=== PATIENT | female | born 1950 | race Asian ===

== ENCOUNTER 2017-09-26 06:29 | Day surgery (SDC) | payer MEDICARE, OTHER ==
[~2017-09-26] VITALS: Ht 157.5 cm; Wt 49.5 kg
[~2017-09-26 06:29] MED LIST: SODIUM CHLORIDE 0.9% 1,000 ML IV ONE
[2017-09-26] MEDS ORDERED: BENZOCAINE 20% 50 MCG/SPRAY 57 GM TP ONE (06:30)
[2017-09-26] MEDS ORDERED: SODIUM CHLORIDE 0.9% 1,000 ML IV ONE ×2 (06:30→06:42)
[2017-09-26] MEDS ORDERED: LIDOCAINE HCL 2% 30 ML JELLY TP ONE (06:30)
[2017-09-26] MEDS ORDERED: ALBUTEROL SULFATE 2.5 MG/0.5 ML NEB SOLUTION NEB ONE (06:30)
[2017-09-26] MEDS ORDERED: LIDOCAINE HCL 4% 50 ML SOLUTION TP ONE (06:30)
[2017-09-26] MEDS ORDERED: FentaNYL CITRATE-PF 100 MCG/2 ML VIAL ONE (07:53)
[2017-09-26] MEDS ORDERED: MIDAZOLAM HCL 2 MG/2 ML VIAL ONE (07:53)
[2017-09-26] MEDS ORDERED: MethylPREDNISolone SOD SUCC 125 MG/2 ML VIAL IVP ONE (09:15)
[2017-09-26] MEDS ORDERED: MethylPREDNISolone SOD SUCC 125 MG/2 ML VIAL ONE (09:42)
[2017-09-26] MEDS ORDERED: ASPI81TA33 PO (10:10)
[2017-09-26] MEDS ORDERED: SIMV-259 PO (10:10)
[2017-09-26] MEDS ORDERED: AMLO-511 PO (10:10)
[2017-09-26] MEDS ORDERED: ALBU90AE IH (10:10)
[2017-09-26] MEDS ORDERED: OXYGEN THERAPY IH SCH (20:00)
== END 2017-09-26 09:58 | disposition other institution (70) ==
LOC: SURGERY 06:29
PROVIDERS: ATTEND Internal Medicine Critical Care Medicine
DX: J38.4 Edema of larynx (principal); B37.0 Candidal stomatitis; J18.9 Pneumonia, unspecified organism
CPT/HCPCS: 31623; 31624; 71010; 87015 ×2; 87070; 87101; 87205; 87220; 88108; 88312; J2250; J2930; J3010; J7030

== ENCOUNTER 2017-09-26 10:08 | Inpatient (IN) | payer MEDICARE, OTHER ==
[~2017-09-26] VITALS: Ht 152.4 cm; Wt 50.0 kg
[2017-09-26] MEDS ORDERED: ALBU90AE IH (10:10)
[2017-09-26] MEDS ORDERED: ASPI81TA33 PO (10:10)
[2017-09-26] MEDS ORDERED: AMLO-511 PO (10:10)
[2017-09-26] MEDS ORDERED: SIMV-259 PO (10:10)
[2017-09-26] MEDS ORDERED: PROPOFOL 1000 MG/ISO-OSM 100 ML IV PRN (10:19)
[2017-09-26] MEDS ORDERED: MIDAZOLAM HCL 5 MG/ML VIAL ONE (10:41)
[2017-09-26 10:59] LABS: BASOPHILS % (AUTO) 0.3 % (0.0-2.0); EOSINOPHILS % (AUTO) 14.8 % (1.0-6.0); HEMATOCRIT 41.2 % (36-46); HEMOGLOBIN 13.7 g/dL (12.0-16.0); LYMPHOCYTES # (AUTO) 3.2 K/uL (1.0-4.8); LYMPHOCYTES % (AUTO) 28.6 % (22.0-44.0); MEAN CORPUSCULAR HEMOGLOBIN 30.9 pg (26.0-34.0); MEAN CORPUSCULAR HGB CONC 33.1 G/dL (31.0-37.0); MEAN CORPUSCULAR VOLUME 93 fL (80-100); MONOCYTES # (AUTO) 0.4 K/uL (0.1-1.0); MONOCYTES % (AUTO) 3.4 % (2.0-9.0); NEUTROPHILS # (AUTO) 5.9 K/uL (1.8-7.7); NEUTROPHILS % (AUTO) 52.9 % (40.0-70.0); PLATELET COUNT (AUTO) 318 K/uL (150-450); RED BLOOD CELL COUNT(AUTO) 4.42 MIL/uL (4.00-5.20); WHITE BLOOD COUNT (AUTO) 11.2 K/uL (4.5-11.0)
[2017-09-26] MEDS ORDERED: SODIUM CHLORIDE 0.9% 1,000 ML IV ONE ×2 (11:08→12:30)
[2017-09-26 11:09] LABS: ANION GAP 10 mmol/L (8-16); CALCIUM, TOTAL 8.4 mg/dL (8.8-10.5); CARBON DIOXIDE 28 mmol/L (22-29); CHLORIDE 105 mmol/L (98-107); CREATININE 0.82 mg/dL (0.60-1.30); GLOMERULAR FILTR. RATE CALC > 60 mL/min (>60); POTASSIUM 3.6 mmol/L (3.5-5.1); SODIUM SERUM 143 mmol/L (136-145); UREA NITROGEN, BLOOD 10 mg/dL (7-18)
[2017-09-26] MEDS ORDERED: NOREPINEPHRINE 4 MG/D5%-WATER 0 ML IV ONE (11:13)
[2017-09-26 11:14] LABS: ALANINE AMINOTRANSFERASE 16 U/L (12-78); ALBUMIN 3.7 g/dL (3.4-5.0); ASPARTATE AMINOTRANSFERASE 17 U/L (15-37); BILIRUBIN,TOTAL 0.4 mg/dL (0.1-1.0); TOTAL PROTEIN, SERUM 7.7 g/dL (6.4-8.2)
[2017-09-26] MEDS ORDERED: PHENYLEPHRINE 200 MG/D5%-WATER 250 ML IV ONE (11:15)
[2017-09-26 11:17] LABS: LACTIC ACID 1.5 mmol/L (0.4-2.0)
[2017-09-26 11:21] LABS: ABG A-A DIFF O2 219.5 mmHg (10-20.0); ABG BASE EXCESS -1.2 mmol/L (-2.0-3.0); ABG HCO3 22.8 mmol/L (22.0-26.0); ABG OXYHEMOGLOBIN 91.4 % (94.0-100.0); ABG PCO2 55 mmHg (35-45); ABG PH 7.281 (7.35-7.450); TEMPERATURE, FAHRENHEIT, BG 98.6 FAHREN (96.0-98.6)
[2017-09-26 11:22] LABS: ALLEN TEST, BLOOD GAS Positive
[2017-09-26] MEDS ORDERED: 0.9% SODIUM CHLORIDE 5 ML NEB SOLUTION NEB ONE (11:28)
[2017-09-26] MEDS ORDERED: ALBUTEROL SULFATE 5 MG/ML 20 ML NEB SOLN [BULK] NEB ONE (11:30)
[2017-09-26] MEDS ORDERED: PredniSONE 20 MG TABLET PO ONE (11:30)
[2017-09-26] MEDS ORDERED: MethylPREDNISolone SOD SUCC 125 MG/2 ML VIAL IVP ONE (11:30)
[2017-09-26] MEDS ORDERED: IPRATROPIUM BROMIDE 0.5 MG/2.5 ML NEB SOLUTION NEB ONE (11:30)
[2017-09-26] MEDS ORDERED: PHENYLEPHRINE 200 MG/D5%-WATER 250 ML IV PRN (11:30)
[2017-09-26] MEDS ORDERED: SUCCINYLCHOLINE CHLORIDE 20 MG/ML 10 ML VIAL IVP ONE (12:30)
[2017-09-26] MEDS ORDERED: ETOMIDATE 2 MG/ML 10 ML VIAL IVP ONE (12:30)
[2017-09-26] MEDS ORDERED: MIDAZOLAM HCL 5 MG/ML VIAL IVP ONE (13:00)
[2017-09-26] MEDS ORDERED: MAGNESIUM HYDROXIDE SUSPENSION 30 ML UDCUP PO PRN (14:30)
[2017-09-26] MEDS ORDERED: ACETAMINOPHEN 325 MG TABLET PO PRN (14:30)
[2017-09-26] MEDS: PANTOPRAZOLE SODIUM 40 MG DR TABLET PO SCH (14:30)
[2017-09-26 15:07] VITALS: BP 130/70
[2017-09-26 15:12] VITALS: BP 130/70
[2017-09-26 16:00] VITALS: BP 111/60
[2017-09-26] MEDS: IPRATROPIUM BROMIDE 0.5 MG/2.5 ML NEB SOLUTION NEB SCH ×2 (16:23→22:01)
[2017-09-26] MEDS: ALBUTEROL SULFATE 2.5 MG/0.5 ML NEB SOLUTION NEB SCH ×2 (16:23→22:01)
[2017-09-26 18:00] VITALS: BP 134/70
[2017-09-26] MEDS: MethylPREDNISolone SOD SUCC 125 MG/2 ML VIAL IVP SCH ×2 (18:45→23:19)
[2017-09-26] MEDS: HEPARIN SODIUM,PORCINE 5,000 UNITS/ML VIAL SQ SCH ×2 (18:46→23:19)
[2017-09-26] MEDS: PROPOFOL 1000 MG/ISO-OSM 100 ML IV PRN ×2 (19:44→23:21)
[2017-09-26 20:00] VITALS: BP 115/61
[2017-09-26] MEDS: DOCUSATE SODIUM 100 MG CAPSULE PO SCH (20:40)
[2017-09-26 22:00] VITALS: BP 126/66
[2017-09-27] VITALS (7 sets, daily range): BP systolic 103–172; BP diastolic 56–95
[2017-09-27] MEDS: ALBUTEROL SULFATE 2.5 MG/0.5 ML NEB SOLUTION NEB SCH ×7 (00:01→23:19)
[2017-09-27] MEDS: IPRATROPIUM BROMIDE 0.5 MG/2.5 ML NEB SOLUTION NEB SCH ×7 (02:48→23:19)
[2017-09-27] MEDS: MethylPREDNISolone SOD SUCC 125 MG/2 ML VIAL IVP SCH ×4 (05:48→23:27)
[2017-09-27] MEDS: PROPOFOL 1000 MG/ISO-OSM 100 ML IV PRN ×4 (05:49→18:55)
[2017-09-27] MEDS: PANTOPRAZOLE SODIUM 40 MG DR TABLET PO SCH (08:56)
[2017-09-27] MEDS: HEPARIN SODIUM,PORCINE 5,000 UNITS/ML VIAL SQ SCH ×3 (08:56→23:26)
[2017-09-27] MEDS: DOCUSATE SODIUM 100 MG CAPSULE PO SCH ×2 (08:56→20:25)
[2017-09-27 13:22] LABS: ABG A-A DIFF O2 145.8 mmHg (10-20.0); ABG BASE EXCESS -4.1 mmol/L (-2.0-3.0); ABG HCO3 21.7 mmol/L (22.0-26.0); ABG OXYHEMOGLOBIN 92.6 % (94.0-100.0); ABG PCO2 31 mmHg (35-45); ABG PH 7.428 (7.35-7.450); TEMPERATURE, FAHRENHEIT, BG 98.8 FAHREN (96.0-98.6)
[2017-09-27 13:23] LABS: ALLEN TEST, BLOOD GAS Positive
[2017-09-27] MEDS ORDERED: ETOMIDATE 2 MG/ML 10 ML VIAL IVP ONE (17:00)
[2017-09-27] MEDS ORDERED: SODIUM CHLORIDE 0.9% 250 ML IV ONE (22:06)
[2017-09-28] VITALS: BP 107/73
[2017-09-28] MEDS: PROPOFOL 1000 MG/ISO-OSM 100 ML IV PRN ×2 (01:38→08:40)
[2017-09-28] MEDS: IPRATROPIUM BROMIDE 0.5 MG/2.5 ML NEB SOLUTION NEB SCH ×6 (02:35→23:03)
[2017-09-28] MEDS: ALBUTEROL SULFATE 2.5 MG/0.5 ML NEB SOLUTION NEB SCH ×6 (02:36→23:03)
[2017-09-28 04:00] VITALS: BP 100/53
[2017-09-28] MEDS: MethylPREDNISolone SOD SUCC 125 MG/2 ML VIAL IVP SCH ×4 (05:11→23:41)
[2017-09-28 05:16] LABS: CALCIUM, TOTAL 8.2 mg/dL (8.8-10.5); CREATININE 0.96 mg/dL (0.60-1.30); POTASSIUM 3.1 mmol/L (3.5-5.1)
[2017-09-28 05:19] LABS: HEMATOCRIT 36.9 % (36-46); HEMOGLOBIN 12.2 g/dL (12.0-16.0); MEAN CORPUSCULAR HEMOGLOBIN 30.4 pg (26.0-34.0); MEAN CORPUSCULAR VOLUME 92 fL (80-100); PLATELET COUNT (AUTO) 251 K/uL (150-450); RED BLOOD CELL COUNT(AUTO) 4.02 MIL/uL (4.00-5.20); RED CELL DISTRIBUTION WIDTH 14.1 % (11.5-14.5)
[2017-09-28 07:29] LABS: LYMPHOCYTES % (MANUAL) 3 % (22-44); TOTAL CELLS COUNTED 100
[2017-09-28 08:00] VITALS: BP 130/71
[2017-09-28] MEDS: HEPARIN SODIUM,PORCINE 5,000 UNITS/ML VIAL SQ SCH ×3 (08:07→23:40)
[2017-09-28] MEDS: DOCUSATE SODIUM 100 MG CAPSULE PO SCH ×2 (08:08→21:00)
[2017-09-28] MEDS: PANTOPRAZOLE SODIUM 40 MG DR TABLET PO SCH (08:08)
[2017-09-28] MEDS ORDERED: POTASSIUM CHL 10 MEQ/WATER 50 ML IV PRN (09:00)
[2017-09-28] MEDS ORDERED: POTASSIUM CHLORIDE 10% 40 MEQ/30 ML LIQUID UDCUP NG PRN ×2 (09:00)
[2017-09-28] MEDS ORDERED: HALOPERIDOL LACTATE 5 MG/ML VIAL IVP PRN (10:45)
[2017-09-28 11:21] LABS: ABG A-A DIFF O2 129.9 mmHg (10-20.0); ABG BASE EXCESS -5.6 mmol/L (-2.0-3.0); ABG HCO3 20.5 mmol/L (22.0-26.0); ABG OXYHEMOGLOBIN 94.5 % (94.0-100.0); ABG PCO2 34 mmHg (35-45); ABG PH 7.382 (7.35-7.450); ALLEN TEST, BLOOD GAS Positive; TEMPERATURE, FAHRENHEIT, BG 98.6 FAHREN (96.0-98.6)
[2017-09-28 12:00] VITALS: BP 114/59
[2017-09-28 16:00] VITALS: BP 108/60
[2017-09-28 20:00] VITALS: BP 119/56
[2017-09-29] VITALS: BP 130/65
[2017-09-29] MEDS ORDERED: SODIUM CHLORIDE 0.9% 500 ML IV ONE (03:13)
[2017-09-29] MEDS: IPRATROPIUM BROMIDE 0.5 MG/2.5 ML NEB SOLUTION NEB SCH ×6 (03:16→22:54)
[2017-09-29] MEDS: ALBUTEROL SULFATE 2.5 MG/0.5 ML NEB SOLUTION NEB SCH ×6 (03:17→22:54)
[2017-09-29 04:00] VITALS: BP 125/63
[2017-09-29 08:00] VITALS: BP 150/61
[2017-09-29] MEDS: MethylPREDNISolone SOD SUCC 125 MG/2 ML VIAL IVP SCH ×3 (08:08→23:50)
[2017-09-29] MEDS: HEPARIN SODIUM,PORCINE 5,000 UNITS/ML VIAL SQ SCH ×3 (08:08→23:51)
[2017-09-29] MEDS: PANTOPRAZOLE SODIUM 40 MG DR TABLET PO SCH (08:09)
[2017-09-29] MEDS: DOCUSATE SODIUM 100 MG CAPSULE PO SCH ×2 (08:09→20:10)
[2017-09-29 12:30] VITALS: BP 131/65
[2017-09-29 16:21] VITALS: BP 125/58
[2017-09-29 20:45] VITALS: BP 141/79
[2017-09-30 00:23] VITALS: BP 122/69
[2017-09-30] MEDS: ALBUTEROL SULFATE 2.5 MG/0.5 ML NEB SOLUTION NEB SCH ×6 (03:00→22:54)
[2017-09-30] MEDS: IPRATROPIUM BROMIDE 0.5 MG/2.5 ML NEB SOLUTION NEB SCH ×6 (03:00→22:54)
[2017-09-30 05:42] VITALS: BP 135/72
[2017-09-30 07:31] VITALS: BP 133/65
[2017-09-30] MEDS: HEPARIN SODIUM,PORCINE 5,000 UNITS/ML VIAL SQ SCH ×2 (08:58→17:36)
[2017-09-30] MEDS: MethylPREDNISolone SOD SUCC 125 MG/2 ML VIAL IVP SCH ×2 (08:58→17:36)
[2017-09-30] MEDS: PANTOPRAZOLE SODIUM 40 MG DR TABLET PO SCH (08:58)
[2017-09-30] MEDS: DOCUSATE SODIUM 100 MG CAPSULE PO SCH ×2 (08:59→20:18)
[2017-09-30 11:20] VITALS: BP 150/73
[2017-09-30 15:21] VITALS: BP 139/52
[2017-09-30 19:42] VITALS: BP 142/67
[2017-10-01 00:29] VITALS: BP 129/68
[2017-10-01] MEDS: HEPARIN SODIUM,PORCINE 5,000 UNITS/ML VIAL SQ SCH ×2 (00:58→08:14)
[2017-10-01] MEDS: MethylPREDNISolone SOD SUCC 125 MG/2 ML VIAL IVP SCH ×2 (00:58→08:17)
[2017-10-01] MEDS: IPRATROPIUM BROMIDE 0.5 MG/2.5 ML NEB SOLUTION NEB SCH ×4 (02:58→15:01)
[2017-10-01] MEDS: ALBUTEROL SULFATE 2.5 MG/0.5 ML NEB SOLUTION NEB SCH ×4 (02:58→15:01)
[2017-10-01 04:47] VITALS: BP 133/65
[2017-10-01 07:06] VITALS: BP 143/93
[2017-10-01] MEDS: DOCUSATE SODIUM 100 MG CAPSULE PO SCH (08:14)
[2017-10-01] MEDS: PANTOPRAZOLE SODIUM 40 MG DR TABLET PO SCH (08:16)
[2017-10-01 10:30] VITALS: BP 146/79
[2017-10-01] MEDS ORDERED: PRED10 PO ×2 (12:06→12:10)
[2017-10-01] MEDS ORDERED: PRED20 PO (12:06)
[2017-10-01] MEDS ORDERED: PRED5 PO ×2 (12:06→12:11)
[2017-10-01 15:10] VITALS: BP 150/73
[2017-10-02] MEDS ORDERED: PredniSONE 20 MG TABLET PO SCH (09:00)
== END 2017-10-01 15:40 | disposition home or self-care (01) | DRG 208 ==
LOC: EMS 10:09 → ICU 13:13 → 5N 09-29 12:25
PROVIDERS: ADMIT Internal Medicine; ATTEND Internal Medicine
PROC: 5A1945Z Respiratory Ventilation, 24-96 Consecutive Hours (ICD-10-PCS; principal; 2017-09-26)
PROC: 0BH17EZ Insertion of Endotracheal Airway into Trachea, Via Natural or Artificial Opening (ICD-10-PCS; 2017-09-26)
DX: J96.01 Acute respiratory failure with hypoxia (principal); Z99.11 Dependence on respirator [ventilator] status; E87.2 Acidosis; J44.1 Chronic obstructive pulmonary disease with (acute) exacerbation; J45.901 Unspecified asthma with (acute) exacerbation; E78.5 Hyperlipidemia, unspecified; I10 Essential (primary) hypertension; F17.200 Nicotine dependence, unspecified, uncomplicated
CPT/HCPCS: 31500; 51702; 82805; 83605; 84132; 87040; 87081; 92610; 93005; 93306; 94002; 94003; 94640; 94644; 96365; 96366; 96375; 97110; 97116; 97162; 97165; 97530; 97535; 99291; J1644; J2250; J2370; J2704; J2930; J3490; J7030; J7040; J7050

== ENCOUNTER 2020-08-23 06:17 | Day surgery (SDC) | payer MEDICARE, OTHER ==
[2020-08-21 10:54] LABS: COVID AG,FIA SOURCE NASOPHARYNGEAL
[~2020-08-23] VITALS: Ht 152.4 cm; Wt 55.5 kg
[~2020-08-23 06:17] MED LIST changes: +ALBU90AE IH; +AMLO-257 PO; +ASPI81TA87 PO; +KETOROLAC TROMETHAMINE 0.5% 5 ML OPHTHALMIC SOLUTION ONE; +MOXIFLOXACIN HCL 0.5% 3 ML OPHTHALMIC SOLUTION ONE; +PHENYLEPHRINE HCL 2.5% 2 ML OPHTHALMIC SOLUTION ONE; +PRED10 PO; +PRED20 PO; +PRED5 PO; +RINGERS SOLUTION,LACTATED 500 ML IV ONE; +SIMV-259 PO; -SODIUM CHLORIDE 0.9% 1,000 ML IV ONE; +TROPICAMIDE 1% 2 ML OPHTHALMIC SOLUTION ONE
[2020-08-23] MEDS ORDERED: MIDAZOLAM HCL 2 MG/2 ML VIAL IVP ONE (06:18)
[2020-08-23] MEDS ORDERED: HYALURONATE SODIUM 12 MG/ML 0.8 ML SYRINGE IO ONE (06:18)
[2020-08-23] MEDS ORDERED: POVIDONE-IODINE 10% 15 ML SOLUTION UD TP ONE (06:18)
[2020-08-23] MEDS ORDERED: BALANCED SALT 15 ML OPHTHALMIC IRRIG.SOLN OD ONE (06:18)
[2020-08-23] MEDS ORDERED: EPINEPHrine 1:1,000 [1 MG/ML] AMP IM ONE (06:18)
[2020-08-23] MEDS ORDERED: FentaNYL CITRATE-PF 100 MCG/2 ML VIAL IVP ONE (06:18)
[2020-08-23] MEDS ORDERED: HYALURONATE SOD/CHONDROITIN SOD 0.5 ML VIAL IO ONE (06:18)
[2020-08-23] MEDS: MOXIFLOXACIN HCL 0.5% 3 ML OPHTHALMIC SOLUTION OD SCH ×3 (07:04→07:15)
[2020-08-23] MEDS: TROPICAMIDE 1% 2 ML OPHTHALMIC SOLUTION OD SCH ×3 (07:04→07:15)
[2020-08-23] MEDS: KETOROLAC TROMETHAMINE 0.5% 5 ML OPHTHALMIC SOLUTION OD SCH ×3 (07:04→07:15)
[2020-08-23] MEDS: PHENYLEPHRINE HCL 2.5% 2 ML OPHTHALMIC SOLUTION OD SCH ×3 (07:04→07:15)
== END 2020-08-23 09:30 | disposition home or self-care (01) ==
LOC: SURGERY 06:17
PROVIDERS: ATTEND Ophthalmology
DX: H25.11 Age-related nuclear cataract, right eye (principal); J44.9 Chronic obstructive pulmonary disease, unspecified; F17.210 Nicotine dependence, cigarettes, uncomplicated; Z79.899 Other long term (current) drug therapy; Z79.82 Long term (current) use of aspirin; E78.00 Pure hypercholesterolemia, unspecified; I10 Essential (primary) hypertension; Z20.828 Contact with and (suspected) exposure to other viral communicable diseases
CPT/HCPCS: 66984; 87426; 93005; C9803; J0171; J2250; J3010; J3490; J7120; V2632

== ENCOUNTER 2020-09-06 06:42 | Day surgery (SDC) | payer MEDICARE, OTHER ==
[2020-09-04 10:20] LABS: COVID AG,FIA SOURCE NASOPHARYNGEAL
[~2020-09-06] VITALS: Ht 157.5 cm; Wt 56.4 kg
[~2020-09-06 06:42] MED LIST changes: -KETOROLAC TROMETHAMINE 0.5% 5 ML OPHTHALMIC SOLUTION ONE; -MOXIFLOXACIN HCL 0.5% 3 ML OPHTHALMIC SOLUTION ONE; -PHENYLEPHRINE HCL 2.5% 2 ML OPHTHALMIC SOLUTION ONE; -RINGERS SOLUTION,LACTATED 500 ML IV ONE; -TROPICAMIDE 1% 2 ML OPHTHALMIC SOLUTION ONE
[2020-09-06] MEDS ORDERED: POVIDONE-IODINE 10% 15 ML SOLUTION UD TP ONE (06:43)
[2020-09-06] MEDS ORDERED: TETRACAINE HCL VISCOUS 0.5% 5 ML OPHTHALMIC SOLUTION OU ONE (06:43)
[2020-09-06] MEDS ORDERED: EPINEPHrine 1:1,000 [1 MG/ML] AMP ET ONE (06:43)
[2020-09-06] MEDS ORDERED: HYALURONATE SODIUM 12 MG/ML 0.8 ML SYRINGE IO ONE (06:43)
[2020-09-06] MEDS ORDERED: LIDOCAINE/PF 1% 2 ML VIAL IM ONE (06:43)
[2020-09-06] MEDS ORDERED: MIDAZOLAM HCL 2 MG/2 ML VIAL IVP ONE (06:43)
[2020-09-06] MEDS ORDERED: BALANCED SALT 15 ML OPHTHALMIC IRRIG.SOLN IO ONE (06:43)
[2020-09-06] MEDS ORDERED: HYALURONATE SOD/CHONDROITIN SOD 0.5 ML VIAL IO ONE (06:43)
[2020-09-06] MEDS ORDERED: FentaNYL CITRATE-PF 100 MCG/2 ML VIAL IVP ONE (06:43)
[2020-09-06] MEDS ORDERED: KETOROLAC TROMETHAMINE 0.5% 5 ML OPHTHALMIC SOLUTION ONE (07:06)
[2020-09-06] MEDS ORDERED: MOXIFLOXACIN HCL 0.5% 3 ML OPHTHALMIC SOLUTION ONE (07:06)
[2020-09-06] MEDS ORDERED: RINGERS SOLUTION,LACTATED 500 ML IV ONE ×2 (07:06→08:00)
[2020-09-06] MEDS ORDERED: TROPICAMIDE 1% 2 ML OPHTHALMIC SOLUTION ONE (07:06)
[2020-09-06] MEDS ORDERED: PHENYLEPHRINE HCL 2.5% 2 ML OPHTHALMIC SOLUTION ONE (07:06)
[2020-09-06] MEDS: KETOROLAC TROMETHAMINE 0.5% 5 ML OPHTHALMIC SOLUTION OS SCH ×3 (07:17→07:40)
[2020-09-06] MEDS: PHENYLEPHRINE HCL 2.5% 2 ML OPHTHALMIC SOLUTION OS SCH ×3 (07:17→07:40)
[2020-09-06] MEDS: TROPICAMIDE 1% 2 ML OPHTHALMIC SOLUTION OS SCH ×3 (07:18→07:40)
[2020-09-06] MEDS: MOXIFLOXACIN HCL 0.5% 3 ML OPHTHALMIC SOLUTION OS SCH ×3 (07:19→07:40)
== END 2020-09-06 11:00 | disposition home or self-care (01) ==
LOC: SURGERY 06:42
PROVIDERS: ATTEND Ophthalmology
DX: H25.12 Age-related nuclear cataract, left eye (principal); H35.3231 Exudative age-related macular degeneration, bilateral, with active choroidal neovascularization; E78.00 Pure hypercholesterolemia, unspecified; I10 Essential (primary) hypertension; Z79.82 Long term (current) use of aspirin; Z79.899 Other long term (current) drug therapy; F17.210 Nicotine dependence, cigarettes, uncomplicated; Z98.890 Other specified postprocedural states; Z20.828 Contact with and (suspected) exposure to other viral communicable diseases
CPT/HCPCS: 66984; 87426; 93005; C9803; J0171; J2250; J3010; J3490 ×2; J7120; V2632